=== PATIENT | male | born 1995 | race Caucasian/White ===

== ENCOUNTER 2022-09-03 15:26 | Emergency (ER) | payer OTHER, SELFPAY ==
--- NOTE | ~2022-09-03 | US_ITS ---
EXAMINATION: US ABDOMEN LIMITED CLINICAL INFORMATION: Right upper quadrant pain.. COMPARISON: None available. TECHNIQUE: Real-time imaging of the right upper quadrant abdominal viscera. In the gallbladder. FINDINGS: GALLBLADDER: Normal. The gallbladder is physiologically distended without evidence of stones, sludge, polyps, wall thickening or pericholecystic fluid. COMMON BILE DUCT: Normal in caliber measuring 0.4 cm in diameter. FREE FLUID: None. US/US abdomen limited IMPRESSION: Normal appearance of the gallbladder.
[2022-09-03 15:31] VITALS: BP 156/84; PULSE 95; RESP 18; TEMP 36.9; O2SAT 99; BMI 31.6
--- NOTE | 2022-09-03 15:32 | ED.GENADULT ---
HPI - General Adult General Chief complaint: Abdominal Pain Stated complaint: Urgent care sent over, ultrasound wanted for abd. Time Seen by Provider: 09/03/22 20:58 Source: patient Mode of arrival: ambulatory Limitations: no limitations History of Present Illness HPI narrative: 27-year-old male presents with multiple complaints. The symptoms started several years ago but have gotten particularly worse over the last 2 years. Patient's symptoms cross multiple systems including myalgias, rib pain, GI related illnesses. Predominantly he is here for GI complaints. His abdominal symptoms include abdominal pain that is intermittent in nature. Bloating, nausea, diarrhea, constipation. The symptoms are all intermittent. There is no clear relieving or exacerbating features. They can be associated with stress and anxiety. The symptoms are predominantly right-sided but occasionally on the left side. Patient describes the symptoms as moderate to severe in nature. Patient has intermittently tried probiotics, fiber, different diets however he has not been consistently and persistently trying the he denies any blood in stools or melanotic stools. Said no fevers or chills. He has had no joint aches or swelling. Related Data Previous Rx's Medication Instructions Recorded dicyclomine 20 mg tablet 20 mg PO QID #30 tabs 09/03/22 hydroxyzine HCl 25 mg tablet 25 mg PO TID PRN anxiety #14 tabs 09/03/22 ondansetron 4 mg disintegrating 4 mg PO Q8H PRN nausea and 09/03/22 tablet vomiting #14 tabs Allergies Allergy/AdvReac Type Severity Reaction Status Date / Time No Known Allergies Allergy Unverified 12/20/19 19:01 [No Known Allergies*] Review of Systems Review of Systems: CONSTITUTIONAL: Denies weight loss, fever and chills. HEENT: Denies changes in vision and hearing. RESPIRATORY: Denies SOB and cough. CV: Denies palpitations no CP. GI: Positive abdominal pain, nausea, vomiting and diarrhea. : Denies dysuria and urinary frequency. MSK: De positive nies myalgia negative joint pain. SKIN: Denies rash and pruritus. NEUROLOGICAL: Denies headache and syncope. PSYCHIATRIC: Denies recent changes in mood. Denies anxiety and depression. All other ROS are negative unless in HPI PMFSH Social History Social History Alcohol intake: never Smoked in Last 30 Days: No Use of substances other than those prescribed or required for medical reasons: No Advance Directives: No Advance Directives Information Provided: Yes Physical Exam ED Vital Signs: Vital Signs - 24 hr 09/03/22 15:31 09/03/22 20:28 Temperature 98.4 F 98.5 F Pulse Rate 95 105 H Respiratory Rate 18 18 Blood Pressure 156/84 H 147/100 H Pulse Oximetry 99 97 Oxygen Delivery Method Nasal Cannula Room Air BMI result Body Mass Index 31.6 GEN: Well developed, no acute distress, alert, oriented HEENT: Normocephalic, atraumatic, normal external ears, nose appears normal, no oropharyngeal edema or exudates Eyes: Normal to appearance Neck: Supple, no lymphadenopathy Respiratory: Talks in complete sentences, no respiratory distress, clear to auscultation bilaterally Cardiovascular: Regular rate and rhythm, no murmurs rubs or gallops Abdomen: Soft, nontender, nondistended, no guarding, no rebound Back: No CVA tenderness Extremities: No clubbing cyanosis or edema Neurologic: No focal neurologic deficits, cranial nerves 2-12 intact, strength is 5/5 bilaterally Skin: No rash Course Course Course Narrative: RME performed by Angelina Riley PA-C. Patient is a 27 year old assigned male at presenting to the emergency department with RUQ abdominal pain. Labs, imaging ordered. Patient placed back in the waiting room pending room availability and results. Reevaluation(s) Reevaluation #1: The workup is complete. Laboratory analysis demonstrates no significant abnormalities. Ultrasound of the right upper quadrant demonstrates no gallstones were abnormalities the liver. I discussed at length multiple treatment options and differential diagnoses. We discussed lactose-free diet, gluten free diet, IBS, referral to GI, adding fiber to the diet. At this point, I believe the most likely diagnosis is IBS and anxiety/stress related illnesses. I will refer the patient to gastroenterology. Patient does have a primary care point but not until December. Patient can try Bentyl, Zofran and Vistaril. Time: 21:32 Medical Decision Making Medical Decision Making MDM Narrative: 27-year-old male presents with multiple complaints. He is predominantly here for GI related illnesses which include intermittent diarrhea and constipation, abdominal pain and bloating, nausea. Examination is benign. Will order an ultrasound to rule out biliary colic. Will order routine labs check for any electrolyte abnormalities, hepatic dysfunction. Will treat patient symptomatically if needed. The differential diagnosis is broad and see below. Differential Diagnosis Differential Diagnoses: The differential diagnosis associated with the presentation includes (IBS, IBD, lactose intolerance, gluten sensitivity or celiac disease as, stress, anxiety) IBS Lab Data MDM Lab Attestation statement: I reviewed the patient's lab results. 09/03/22 17:20 09/03/22 17:20 Labs: Lab Results 09/03/22 09/03/22 Range/Units 17:20 17:20 WBC 6.6 (4.8-10.8) X10*3/uL RBC 4.95 (4.60-5.80) X10*6/uL Hgb 14.7 (14.0-18.0) g/dl Hct 43.9 (42.0-52.0) % MCV 88.7 (80.0-98.0) fL MCH 29.7 (27.0-33.0) pg MCHC 33.5 (31.0-36.0) g/dl RDW 12.6 (11.0-16.0) % Plt Count 289 (160-400) X10*3/uL MPV 9.6 (9.4-12.4) fL Immature Gran % (Auto) 0.3 (0.0-0.4) % Neut % (Auto) 62.3 (45-73) % Lymph % (Auto) 29.6 (20-40) % [place] % (Auto) 7.1 (2-11) % Eos % (Auto) 0.2 (0-4) % Baso % (Auto) 0.5 (0-2) % Lymph # (Auto) 2.0 (1.2-4.9) X10*3/uL [place] # (Auto) 0.5 (0.1-1.2) X10*3/uL Eos # (Auto) 0.0 (0.0-0.4) X10*3/uL Baso # (Auto) 0.0 (0.0-0.2) X10*3/uL Abs Immat Gran (auto) 0.02 (0.00-0.03) X10*3/uL Absolute Neuts (auto) 4.1 (2.0-8.3) x10*3/uL Absolute Nucleated RBC 0.000 (0.0-0.012) X10*3/uL Nucleated RBC % (auto) 0.0 (0.0-0.2) /100WBC Sodium 140 (135-145) mmol/L Potassium 4.2 (3.3-5.1) mmol/L Chloride 105 (96-108) mmol/L Carbon Dioxide 27 (22-29) mmol/L Anion Gap 12 (12-20) BUN 14 (9-16) mg/dL Creatinine 0.96 (0.5-1.4) mg/dL Estim Creat Clear Calc 136.8 Estimated GFR > 60 Random Glucose 94 (60-115) mg/dL Calcium 10.3 H (8.4-10.2) mg/dL Magnesium 2.2 (1.6-2.6) mg/dL Total Bilirubin 0.4 (0.0-1.0) mg/dL AST 32 (5-37) U/L ALT 78 H (0-40) U/L Alkaline Phosphatase 89 (39-117) U/L Total Protein 8.5 H (6.5-8.0) g/dL Albumin 4.8 (3.5-5.0) g/dL Independent Interpretation I performed an independent interpretation of an: Ultrasound (No acute abnormalities) Radiology Impression Discussion of test interpretation with radiology: I have reviewed the radiologist's reading. ( US/US abdomen limited IMPRESSION: Normal appearance of the gallbladder. Dictated By:Warren Nuñez MDSigned By:<Electronically signed by Warren Nuñez MD in [place]>09/03/22 1656 DD/ [id number]/TT: Director Of Recruiting: TAMELA) Independent Historian Clinical information obtained from an independent historian. History obtained from or confirmed by: Friend Tests considered The following testing was considered but not selected: CT scan the abdomen Prescription Management I considered prescription management with: Pain Medication Discharge Plan Discharge Clinical Impression: Irritable bowel syndrome Patient Disposition: Home, Self-Care Instructions: Irritable Bowel Syndrome (ED), High Fiber Diet (ED), Gluten-Free Diet (ED), Lactose-Controlled Diet (ED), Anxiety (ED) Prescriptions: New dicyclomine 20 mg tablet 20 mg PO QID Qty: 30 0RF Rx Instructions: May take 30 minutes before eating and before bed ondansetron 4 mg tablet,disintegrating 4 mg PO Q8H PRN (Reason: nausea and vomiting) Qty: 14 0RF hydroxyzine HCl 25 mg tablet 25 mg PO TID PRN (Reason: anxiety) Qty: 14 0RF Referrals: Chaparrita Arias MD [Physician] - 10 days
--- NOTE | 2022-09-03 17:20 | MHC.EDTECH ---
PT BLOOD DRAWN AND SENT TO LAB .
[2022-09-03 17:23] LABS: MANUAL DIFF FLAG NO
[2022-09-03 17:33] LABS: Basophils Percent Auto 0.5 % (0-2); Eosinophils Percent Auto 0.2 % (0-4); Hematocrit 43.9 % (42.0-52.0); Hemoglobin 14.7 g/dl (14.0-18.0); Imm Gran Abs Auto 0.02 X10*3/uL (0.00-0.03); Imm Gran Pct Auto 0.3 % (0.0-0.4); Lymphocytes Percent Auto 29.6 % (20-40); Mean Corpuscular HGB Conc 33.5 g/dl (31.0-36.0); Mean Corpuscular Hemoglobin 29.7 pg (27.0-33.0); Mean Corpuscular Volume 88.7 fL (80.0-98.0); Mean Platelet Volume 9.6 fL (9.4-12.4); Monocytes Absolute Auto 0.5 X10*3/uL (0.1-1.2); Monocytes Percent Auto 7.1 % (2-11); Neutrophils Absolute Auto 4.1 x10*3/uL (2.0-8.3); Neutrophils Percent Auto 62.3 % (45-73); Platelet Count 289 X10*3/uL (160-400); Red Blood Count 4.95 X10*6/uL (4.60-5.80); Red Cell Distribution Width 12.6 % (11.0-16.0); White Blood Count 6.6 X10*3/uL (4.8-10.8)
[2022-09-03 17:45] LABS: Alanine Aminotransferase 78 U/L (0-40); Albumin Level 4.8 g/dL (3.5-5.0); Alkaline Phosphatase 89 U/L (39-117); Anion Gap 12 (12-20); Aspartate Amino Transferase 32 U/L (5-37); Bilirubin Total 0.4 mg/dL (0.0-1.0); Blood Urea Nitrogen 14 mg/dL (9-16); Calcium 10.3 mg/dL (8.4-10.2); Carbon Dioxide 27 mmol/L (22-29); Chloride 105 mmol/L (96-108); Creatinine Clr Calc Pharmacy 136.8; Estimated Glomerular Filt Rate > 60; Glucose Random 94 mg/dL (60-115); Magnesium 2.2 mg/dL (1.6-2.6); Potassium 4.2 mmol/L (3.3-5.1); Sodium 140 mmol/L (135-145); Total Protein 8.5 g/dL (6.5-8.0)
[2022-09-03 20:28] VITALS: BP 147/100; PULSE 105; RESP 18; TEMP 36.9; O2SAT 97
== END 2022-09-03 21:42 | disposition home or self-care (01) ==
PROVIDERS: Physician Assistant Medical; Emergency Provider Emergency Medicine
DX: K58.9 Irritable bowel syndrome, unspecified (principal)
CPT/HCPCS: 36415; 76705; 80053; 83735; 85025; 99284